=== PATIENT | female | born 1955 | race Caucasian/White ===

== ENCOUNTER 2019-06-05 18:06 | Emergency (ER) | payer BC, MEDICARE, SELFPAY ==
[~2019-06-05] VITALS: Ht 165.1 cm; Wt 85.0 kg
--- NOTE | 2019-06-05 18:18 | NUR ---
TRU. REPORT RECEIVED FROM EMS. PT C/O MEDINA/NAUSEA/DZY/SOB SINCE PT WOKE UP IN THIS MORNING. BP WAS 230/120 GLACIOLOGIST BEFORE MEDS GIVEN BY EMS. BP 188/95 NOW. PT'S AOX4. RESPS EVEN AND UNLABORED. ALL MONITORS IN PLACE. CALL LIGHT WITHIN REACH. 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
[2019-06-05] MEDS ORDERED: ALBUTEROL/IPRATROPIUM 2.5MG/0.5MG, 3 ML NPPB ONE (18:30)
[2019-06-05] MEDS ORDERED: ONDANSETRON 2MG/ML, 2ML ONE (18:52)
[2019-06-05] MEDS ORDERED: hydrALAzine 20 MG/ML, 1ML ONE (18:53)
--- NOTE | 2019-06-05 18:53 | NUR ---
REPORT GIVEN TO PAT ENAMORADO.
--- NOTE | 2019-06-05 18:53 | NUR ---
PT REFUSED HEAD CT AT THIS TIME.
[2019-06-05 18:54] LABS: BASOPHILS # (AUTO) 0.02 x10^3/uL (0-0.1); BASOPHILS % (AUTO) 0 % (0-1); EOSINOPHILS # (AUTO) 0.24 x10^3/uL (0-0.4); EOSINOPHILS % (AUTO) 3 % (1-7); LYMPHOCYTES # (AUTO) 1.66 x10^3/uL (1-3.4); LYMPHOCYTES % (AUTO) 18 % (22-44); MD NO; MEAN CORPUSCULAR HEMOGLOBIN 29.3 pg (27.0-34.8); MEAN CORPUSCULAR HGB CONC 33.8 g/dL (32.4-35.8); MEAN CORPUSCULAR VOLUME 86.7 fL (80-100); MEAN PLATELET VOLUME 7.9 fL (7.4-10.4); MONOCYTES # (AUTO) 0.57 x10^3/uL (0.2-0.8); MONOCYTES % (AUTO) 6 % (2-9); NEUTROPHILS # (AUTO) 6.81 x10^3/uL (1.8-6.8); NEUTROPHILS % (AUTO) 73 % (42-75); PLATELET COUNT 257 x10^3/uL (130-400); RED BLOOD COUNT 5.19 x10^6/uL (3.82-5.3); RED CELL DISTRIBUTION WIDTH 13.3 % (9.6-15.2)
[2019-06-05] MEDS ORDERED: SODIUM CHLORIDE FLUSH 10ML SYR IVF ONE (19:00)
[2019-06-05] MEDS ORDERED: ONDANSETRON 2MG/ML, 2ML IVPush ONE (19:00)
[2019-06-05] MEDS ORDERED: hydrALAzine 20 MG/ML, 1ML IV ONE (19:00)
[2019-06-05 19:06] LABS: ALANINE AMINOTRANSFERASE 26 U/L (12-78); ALBUMIN 3.6 g/dL (3.4-5.0); ANION GAP 7 mmol/L (5-15); CALCIUM 8.6 mg/dL (8.5-10.1); CHLORIDE 107 mmol/L (98-107); CREATININE 0.85 mg/dL (0.55-1.02)
[2019-06-05 19:11] LABS: ALKALINE PHOSPHATASE 123 U/L (45-117); BILIRUBIN,TOTAL 0.6 mg/dL (0.2-1.0); TOTAL PROTEIN 7.1 g/dL (6.4-8.2); TROPONIN I < 0.015 ng/mL (0.000-0.045)
[2019-06-05 19:53] VITALS: BP 142/80
== END 2019-06-05 20:36 | disposition home or self-care (01) ==
LOC: ED 20:30
DX: I10 Essential (primary) hypertension (principal); R06.00 Dyspnea, unspecified; R11.2 Nausea with vomiting, unspecified; E11.9 Type 2 diabetes mellitus without complications; E03.9 Hypothyroidism, unspecified; Z90.710 Acquired absence of both cervix and uterus; Z90.49 Acquired absence of other specified parts of digestive tract
CPT/HCPCS: 36415; 71045; 80053; 83880; 84484; 85025; 93005; 96374; 96375; 99284; J0360; J2405